=== PATIENT | female | born 1980 | race Caucasian/White ===

== ENCOUNTER 2021-03-04 15:27 | Outpatient (REF) | payer OTHER, SELFPAY | END 2021-03-04 15:28 | disposition home or self-care (01) | LOC: HO.HAP 15:27 | PROVIDERS: Visit Provider Internal Medicine | DX: H90.3 Sensorineural hearing loss, bilateral (principal); Z46.1 Encounter for fitting and adjustment of hearing aid | CPT/HCPCS: 92592; V5266 ==

== ENCOUNTER 2021-04-22 08:09 | Outpatient (REF) | payer OTHER, SELFPAY ==
--- NOTE | 2021-04-22 15:06 | MHC.AU.AHA ---
Adult Audiological Evaluation Date of Visit: 04/22/21 Reason for Appointment: History of left-sided conductive hearing loss. History of PE tubes and tympanoplasty. Patient arrives to determine if there has been a change in hearing. Previous Hearing Test Results: At this clinic on 09/24/2019: Right: Normal/borderline-normal hearing from 250-6000 Hz, mild at 8000 Hz. Left: Borderline sloping to moderate conductive hearing loss. 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: [employer] Model: Staxxon [id number] Serial Number: [id number] Battery Size: 13 Warranty: 12/31/2022 Loss and Damage Warranty: 12/31/2022 Dispensed By: [facility] Date of Fittin10/18/2019 Otoscopy: Right Ear: Unremarkable Left Ear: Unremarkable Tympanometry: Tympanometry performed due to: History of middle ear dysfunction Right Ear: Hypercompliant Middle Ear System (Type Ad) Left Ear: Hypercompliant Middle Ear System (Type Ad) Hearing Evaluation: Transducer(s) Used: Insert Earphones Method: Conventional Audiometry Stimuli Used: Pure Tones Right Ear: Description of Hearing: Normal from 250-6000 Hz, mild at 8000 Hz Left Ear: Description of Hearing: Mild sloping to moderate conductive hearing loss Speech Recognition Threshold (SRT): Method Used: Monitored Live Voice Stimuli Used: Spondee Words Right Ear: 15 dBHL Left Ear: 35 dBHL Word Discrimination: Method: Monitored Live Voice Word Lists Used: W-22 Right Ear: 100% at 60 dBHL Left Ear: 100% at 75 dBHL Most Comfortable Level (MCL): Right Ear: 60 dBHL Left Ear: 75 dBHL Comparison: Compared to most recent evaluation: Slight decreases noted in the left ear. Recommendations: Audiological re-evaluation in one year. Hearing aid(s) reprogrammed with updated test results. Patient also reported that background sounds in the car were too loud and overpowered others talking. Increased NoiseBlock in all programs. Diagnosis: Primary Diagnosis: H90.12 ConductiveHL, Unilateral Left Ear, W/Unrestricted Contralateral Services Performed: Comprehensive Audiological Evaluation (CPT 12039), Tympanometry (CPT 64115) Signature: Provider: Zully Anderson, [facility]
== END 2021-04-22 08:10 | disposition home or self-care (01) ==
LOC: HO.SH 08:09
PROVIDERS: Visit Provider Nurse Practitioner Gerontology
DX: Z46.1 Encounter for fitting and adjustment of hearing aid (principal); H90.12 Conductive hearing loss, unilateral, left ear, with unrestricted hearing on the contralateral side
CPT/HCPCS: 92557; 92567; V5266

== ENCOUNTER 2022-02-09 13:10 | Outpatient (REF) | payer OTHER, SELFPAY | END 2022-02-09 13:11 | disposition home or self-care (01) | LOC: HO.HAP 13:10 | PROVIDERS: Visit Provider Internal Medicine | DX: Z46.1 Encounter for fitting and adjustment of hearing aid (principal); H90.12 Conductive hearing loss, unilateral, left ear, with unrestricted hearing on the contralateral side | CPT/HCPCS: V5266 ==

== ENCOUNTER 2022-04-30 13:32 | Outpatient (REF) | payer OTHER, SELFPAY | END 2022-04-30 13:33 | disposition home or self-care (01) | LOC: HO.HAP 13:32 | PROVIDERS: Visit Provider Internal Medicine | DX: Z46.1 Encounter for fitting and adjustment of hearing aid (principal); H90.12 Conductive hearing loss, unilateral, left ear, with unrestricted hearing on the contralateral side | CPT/HCPCS: V5266 ==

== ENCOUNTER 2022-08-12 12:38 | Outpatient (REF) | payer OTHER, SELFPAY ==
--- NOTE | 2022-08-12 13:41 | MHC.AU.FUL ---
Hearing Instrument Follow-Up Date of Visit: 08/12/22 Left Ear: Anila Brooks M50-13T SN: [id number] Color: Jessica Beige Repair Warranty: 12/31/2022 Loss and Damage Warranty: 12/31/2022 Battery Size: 13 Court Operations Clerk: 1 M Type of Mold: Small open dome Type of Wax Guard: Cerushield Dispensed By: [facility] Date of Fittin10/18/2019 Follow-Up Summary: Kiley returned for routine hearing aid maintenance. She reported that she has not been using her hearing aid as consistently as she should out of habit of not wearing it during COVID. She reported the physical fit is comfortable and the sound quality is good, she just needs to reacclimate to daily use. Cleaned the hearing aid, vacuumed the microphones, and replaced the dome, wax guard, and retention tail. A listening check demonstrated that the hearing aid is in good working order. Recommendations: Hearing instrument maintenance in 6 months, or sooner if needed.Please contact our clinic with any questions or concerns. Diagnosis Code(s): Primary Diagnosis: H90.12 ConductiveHL, Unilateral Left Ear, W/Unrestricted Contralateral Signature: Provider: Nahomi Schaffer, [facility]
== END 2022-08-12 12:39 | disposition home or self-care (01) ==
LOC: HO.SH 12:38
PROVIDERS: Visit Provider Nurse Practitioner Family
DX: Z01.118 Encounter for examination of ears and hearing with other abnormal findings (principal); H90.12 Conductive hearing loss, unilateral, left ear, with unrestricted hearing on the contralateral side
CPT/HCPCS: 92557; 92592; V5266

== ENCOUNTER 2023-05-11 11:22 | Outpatient (REF) | payer OTHER, SELFPAY | END 2023-05-11 11:23 | disposition home or self-care (01) | LOC: HO.HAP 11:22 | PROVIDERS: Visit Provider Internal Medicine | DX: Z46.1 Encounter for fitting and adjustment of hearing aid (principal); H90.12 Conductive hearing loss, unilateral, left ear, with unrestricted hearing on the contralateral side | CPT/HCPCS: 92593 ==

== ENCOUNTER 2023-05-11 11:24 | Outpatient (REF) | payer OTHER, SELFPAY | END 2023-05-11 11:25 | disposition home or self-care (01) | LOC: HO.HAP 11:24 | PROVIDERS: Visit Provider Internal Medicine | DX: Z46.1 Encounter for fitting and adjustment of hearing aid (principal); Z90.12 Acquired absence of left breast and nipple | CPT/HCPCS: V5266 ==

== ENCOUNTER 2023-05-12 11:44 | Outpatient (REF) | payer OTHER, SELFPAY | END 2023-05-12 11:45 | disposition home or self-care (01) | LOC: HO.HAP 11:44 | PROVIDERS: Visit Provider Internal Medicine | DX: Z13.89 Encounter for screening for other disorder (principal) ==

== ENCOUNTER 2023-08-29 10:06 | Outpatient (REF) | payer OTHER, SELFPAY ==
[2023-08-29 10:39] LABS: MANUAL DIFF FLAG NO
[2023-08-29 10:46] LABS: Basophils Percent Auto 0.3 % (0-2); Eosinophils Absolute Auto 0.1 X10*3/uL (0.0-0.4); Eosinophils Percent Auto 1.5 % (0-4); Hematocrit 41.7 % (37.0-47.0); Hemoglobin 14.1 g/dl (12.0-16.0); Imm Gran Abs Auto 0.01 X10*3/uL (0.00-0.03); Imm Gran Pct Auto 0.2 % (0.0-0.4); Lymphocytes Absolute Auto 1.4 X10*3/uL (1.2-4.9); Lymphocytes Percent Auto 21.2 % (20-40); Mean Corpuscular HGB Conc 33.8 g/dl (31.0-35.0); Mean Corpuscular Hemoglobin 32.6 pg (27.0-33.0); Mean Corpuscular Volume 96.5 fL (80.0-98.0); Mean Platelet Volume 10.1 fL (9.4-12.3); Monocytes Absolute Auto 0.5 X10*3/uL (0.1-1.2); Monocytes Percent Auto 7.9 % (2-11); Neutrophils Absolute Auto 4.5 x10*3/uL (2.0-8.3); Neutrophils Percent Auto 68.9 % (45-73); Platelet Count 290 X10*3/uL (160-400); Red Blood Count 4.32 X10*6/uL (4.20-5.50); Red Cell Distribution Width 11.9 % (11.0-16.0); White Blood Count 6.6 X10*3/uL (4.8-10.8)
[2023-08-29 11:17] LABS: Alanine Aminotransferase 22 U/L (0-31); Albumin Level 4.1 g/dL (3.5-5.0); Alkaline Phosphatase 76 U/L (39-117); Anion Gap 11 (12-20); Aspartate Amino Transferase 20 U/L (5-31); Bilirubin Total 0.5 mg/dL (0.0-1.0); Blood Urea Nitrogen 13 mg/dL (9-16); Calcium 9.6 mg/dL (8.4-10.2); Carbon Dioxide 26 mmol/L (22-29); Chloride 107 mmol/L (96-108); Cholesterol 202 mg/dL (<200); Estimated Glomerular Filt Rate > 60; Glucose Random 115 mg/dL (60-115); HDL Cholesterol 50 mg/dL (>40); LDL Cholesterol Calculated 124 mg/dL (<100); Potassium 4.9 mmol/L (3.3-5.1); Sodium 139 mmol/L (135-145); Thyroid Stimulating Hormone 3.52 uIU/mL (0.32-4.0); Total Protein 7.3 g/dL (6.5-8.0); Triglycerides 144 mg/dL (<150)
== END 2023-08-29 10:07 | disposition home or self-care (01) ==
LOC: HO.10HDL 10:06
PROVIDERS: Visit Provider Internal Medicine
DX: Z00.00 Encounter for general adult medical examination without abnormal findings (principal); E66.01 Morbid (severe) obesity due to excess calories; H91.92 Unspecified hearing loss, left ear; I10 Essential (primary) hypertension; K51.20 Ulcerative (chronic) proctitis without complications; L73.2 Hidradenitis suppurativa
CPT/HCPCS: 36415; 80053; 80061; 84443; 85025

== ENCOUNTER 2023-09-30 09:14 | Outpatient (REF) | payer OTHER, SELFPAY | END 2023-09-30 09:15 | disposition home or self-care (01) | LOC: HO.SH 09:14 | PROVIDERS: Visit Provider Internal Medicine | DX: Z01.118 Encounter for examination of ears and hearing with other abnormal findings (principal); H90.A21 Sensorineural hearing loss, unilateral, right ear, with restricted hearing on the contralateral side | CPT/HCPCS: 92557; 92567 ==

== ENCOUNTER 2025-09-11 10:49 | Outpatient (REF) | payer OTHER, SELFPAY ==
[2025-09-11 10:59] LABS: MANUAL DIFF FLAG NO
[2025-09-11 11:05] LABS: Hematocrit 40.4 % (37.0-47.0); Hemoglobin 14.1 g/dl (12.0-16.0); Imm Gran Abs Auto 0.02 X10*3/uL (0.00-0.03); Imm Gran Pct Auto 0.3 % (0.0-0.4); Lymphocytes Absolute Auto 1.4 X10*3/uL (1.2-4.9); Mean Corpuscular HGB Conc 34.9 g/dl (31.0-35.0); Mean Corpuscular Hemoglobin 33.2 pg (27.0-33.0); Mean Corpuscular Volume 95.1 fL (80.0-98.0); NRBC Abs Auto 0.000 X10*3/uL (0.0-0.012); NRBC Pct Auto 0.0 /100WBC (0.0-0.2); Platelet Count 302 X10*3/uL (160-400); Red Blood Count 4.25 X10*6/uL (4.20-5.50); White Blood Count 6.5 X10*3/uL (4.8-10.8)
[2025-09-11 12:02] LABS: Alanine Aminotransferase 25 U/L (0-31); Albumin Level 4.4 g/dL (3.5-5.0); Alkaline Phosphatase 76 U/L (39-117); Anion Gap 11 (12-20); Aspartate Amino Transferase 22 U/L (5-31); Blood Urea Nitrogen 12 mg/dL (9-16); Calcium 9.6 mg/dL (8.4-10.2); Carbon Dioxide 22 mmol/L (22-29); Chloride 110 mmol/L (96-108); Cholesterol 176 mg/dL (<200); Estimated Glomerular Filt Rate > 60; HDL Cholesterol 51 mg/dL (>40); Potassium 3.9 mmol/L (3.3-5.1); Sodium 139 mmol/L (135-145); Total Protein 7.2 g/dL (6.5-8.0); Triglycerides 94 mg/dL (<150)
--- OUTSIDE RECORDS SUMMARY | 2025-09-11 13:18 | XMS_ITS | Clinical Summary ---
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 Role Phone Unavailable Primary Care Provider Unavailabl e Social History Tobacco Use Types Packs/Day Years Used Date Smoking Tobacco: Never Assessed Comments Unknown Sex and Gender Information Value Date Recorded Sex Assigned at Not on file Legal Sex Female 6:07 AM EST Gender Identity Not on file Sexual Orientation Not on file Plan of Treatment Health Maintenance Due Date Last Done Comments Breast Cancer Screening 1981 DTaP,Tdap,and Td Vaccines (1 - Tdap) 2000 Hepatitis B Vaccines (1 of 3 - 19+ 3-dose series) 2000 Cervical Cancer Screening: P ap Smear 2002 HPV Vaccines (1 - 3-dose SCD M series) 2008 HIV Screening 09/17/2024 Hepatitis C Screening 09/17/2024 Social Influencers of Health Screening 09/17/2024 Depression Screening 10/17/2024 COVID-19 Vaccine (1 - 2024-2 6 season) 2025 Influenza Vaccine (#1) 2025 RSV Immunization Adult Patie nts (1 - 1-dose 75+ series) 2056 HIB Vaccines Aged Out No longer eligi ble based on patient's age to complete this topic Hepatitis A Vaccines Aged Out No long er eligible based on patient's age to complete this topic IPV Vaccines Aged Out No longer eligi ble based on patient's age to complete this topic MMR Vaccines Aged Out No longer eligi ble based on patient's age to complete this topic Meningococcal ACWY Vaccine Aged Out N o longer eligible based on patient's age to complete this topic Meningococcal B Vaccine Aged Out No l onger eligible based on patient's age to complete this topic Pneumococcal Vaccine: Pediat rics (0 to 5 Years) and At-Risk Patients (6 to 49 Years) Aged Out No longer eligible b ased on patient's age to complete this topic RSV Immunization Patients Un josette 20 months Aged Out No longer eligible b ased on patient's age to complete this topic Varicella Vaccines Aged Out No longer eligible based on patient's age to complete this topic
== END 2025-09-11 10:50 | disposition home or self-care (01) ==
LOC: HO.LAB 10:49
PROVIDERS: PCP Internal Medicine; Visit Provider Internal Medicine
DX: Z00.00 Encounter for general adult medical examination without abnormal findings (principal); I10 Essential (primary) hypertension; E78.00 Pure hypercholesterolemia, unspecified; K51.20 Ulcerative (chronic) proctitis without complications; F17.201 Nicotine dependence, unspecified, in remission
CPT/HCPCS: 36415; 80053; 80061; 85025